=== PATIENT | male | born 1970 | race Caucasian/White ===

== ENCOUNTER 2020-12-24 18:37 | Emergency (ER) | payer BC ==
[2020-12-24 19:02] LABS: BASOPHILS % (AUTO) 0.2 %; EOSINOPHILS % (AUTO) 0.3 %; HGB - HEMOGLOBIN 15.2 g/dL (14.0-18.0); LYMPHOCYTES # (AUTO) 0.8 10^3/uL (1.5-3.5); LYMPHOCYTES % (AUTO) 8.1 %; MEAN CORPUSCULAR VOLUME 84.9 fL (80.0-94.0); MEAN PLATELET VOLUME 9.4 fL (7.4-11.4); MONOCYTES # (AUTO) 0.4 10^3/uL (0.0-1.0); MONOCYTES % (AUTO) 4.2 %; NEUTROPHILS # (AUTO) 8.1 10^3/uL (1.5-6.6); NEUTROPHILS % (AUTO) 86.8 %; PLT - PLATELET COUNT 250 10^3/uL (130-450); RED BLOOD COUNT 5.42 10^6/uL (4.70-6.10); RED CELL DISTRIBUTION WIDTH 13.1 % (12.0-15.0); WHITE BLOOD COUNT 9.4 x10^3/uL (4.8-10.8)
[2020-12-24 19:24] LABS: ALBUMIN 5.2 g/dL (3.2-5.5); BILIRUBIN,TOTAL 4.1 mg/dL (0.2-1.0); CALCIUM 9.8 mg/dL (8.5-10.3); POTASSIUM 3.3 mmol/L (3.5-5.0); TOTAL PROTEIN 7.8 g/dL (6.7-8.2)
[2020-12-24] MEDS ORDERED: ONDANSETRON 4 MG/2 ML VIAL IVP STA (19:51)
[2020-12-24] MEDS ORDERED: HYDROmorphone 1 MG/ML CARPUJECT IVP STA (19:51)
[2020-12-24 19:55] LABS: BILIRUBIN,URINE NEGATIVE (NEGATIVE); GLUCOSE, URINE (UA) NEGATIVE (NEGATIVE); KETONES,URINE (UA) >=80 mg/dL (NEGATIVE); LEUKOCYTE ESTERASE, URINE NEGATIVE (NEGATIVE); NITRITE,URINE NEGATIVE (NEGATIVE); OCCULT BLOOD,URINE NEGATIVE (NEGATIVE); PH,URINE 7.5 PH (5.0-7.5); PROTEIN,URINE NEGATIVE (NEGATIVE); UROBILINOGEN,URINE 0.2 (NORMAL) E.U./dL (NORMAL)
[2020-12-24 19:56] LABS: CLARITY,URINE HAZY (CLEAR)
--- NOTE | 2020-12-24 20:00 | ED Physician Documentation ---
PD HPI ABD PAIN - Stated complaint Stated Complaint: ABD PX - Chief complaint Chief Complaint: Abd Pain - History obtained from History obtained from: Patient - History of Present Illness Timing - duration: Days (1) Timing - details: Waxing and waning Pain level max: 10 Pain level now: 10 Quality: Aching, Sharp, Pain Location: Epigastric Radiation: No: Chest, , Lower back, Left flank, Left shoulder, Right flank, Right shoulder, Upper back Associated symptoms: Nausea. No: Vomiting, Hematemesis, Diarrhea, Constipation, Melena, Hematochezia, Dysuria, Hematuria, Chest pain Recently seen: Not recently seen - Additional information Additional information: Patient is a 50-year-old male who presents to the emergency department with nominal pain. Started this morning at about 2:30 AM and has continued intermittent day. Became constant about 4 hours ago. Nothing seems to make it better or worse. Currently the pain is a 10 out of 10. Described as aching pain, sharp Review of Systems Ten Systems: 10 systems reviewed and negative Constitutional: denies: Fever, Chills Nose: denies: Rhinorrhea / runny nose, Congestion Throat: denies: Sore throat Cardiac: denies: Chest pain / pressure Respiratory: denies: Cough GI: denies: Vomiting, Diarrhea, Hematemesis : denies: Dysuria, Frequency Skin: denies: Rash Musculoskeletal: denies: Neck pain, Back pain Neurologic: denies: Headache PD PAST MEDICAL HISTORY - Past Medical History Past Medical History: No - Past Surgical History Past Surgical History: No - Allergies Allergies/Adverse Reactions: Allergies Allergy/AdvReac Type Severity Reaction Status Date / Time No Known Drug Allergies Allergy Verified 12/24/20 18:44 - Living Situation Living Situation: reports: With family Living Arrangement: reports: At home - Social History Does the pt smoke?: Yes Smoking Status: Former smoker Does the pt drink ETOH?: No PD ED PE NORMAL - Vitals Vital signs reviewed: Yes - General General: Alert and oriented X 3, Other (appears in pain, moaning.) - HEENT HEENT: PERRL, Moist mucous membranes - Neck Neck: Supple, no meningeal sign - Cardiac Cardiac: RRR, Strong equal pulses - Respiratory Respiratory: No respiratory distress, Clear bilaterally - Abdomen Abdomen: Soft, Non distended, Other (TTP RUQ, + baker sign.) - Back Back: No CVA TTP, No spinal TTP - Derm Derm: Warm and dry - Extremities Extremities: No edema - Neuro Neuro: Alert and oriented X 3 - Psych Psych: Normal mood, Normal affect Results - Vitals Vitals: Vital Signs - 24 hr 12/24/20 12/24/20 12/24/20 18:44 20:47 22:00 Temperature 36.5 C Heart Rate 74 78 90 Respiratory 16 20 16 Rate Blood Pressure 160/86 H 147/82 H 137/82 H O2 Saturation 100 98 100 Oxygen O2 Source Nasal cannula - Labs Labs: Laboratory Tests 12/24/20 12/24/20 12/24/20 18:56 18:56 19:48 WBC 9.4 RBC 5.42 Hgb 15.2 Hct 46.0 MCV 84.9 MCH 28.0 MCHC 33.0 RDW 13.1 Plt Count 250 MPV 9.4 Neut # (Auto) 8.1 H Lymph # (Auto) 0.8 L Wells # (Auto) 0.4 Eos # (Auto) 0.0 Baso # (Auto) 0.0 Absolute Nucleated RBC 0.00 Nucleated RBC % 0.0 Sodium 135 Potassium 3.3 L Chloride 97 L Carbon Dioxide 22 Anion Gap 16.0 H BUN 12 Creatinine 1.0 Estimated GFR (MDRD) 79 L Glucose 159 H Calcium 9.8 Total Bilirubin 4.1 H AST 715 H ALT 875 H Alkaline Phosphatase 94 Total Protein 7.8 Albumin 5.2 Globulin 2.6 Albumin/Globulin Ratio 2.0 Lipase 31 Urine Color YELLOW Urine Clarity HAZY Urine pH 7.5 Ur Specific [place] 1.020 Urine Protein NEGATIVE Urine Glucose (UA) NEGATIVE Urine Ketones >=80 H Urine Occult Blood NEGATIVE Urine Nitrite NEGATIVE Urine Bilirubin NEGATIVE Urine Urobilinogen 0.2 (NORMAL) Ur Leukocyte Esterase NEGATIVE Urine RBC None Seen Urine WBC 0-3 Ur Squamous Epith Cells NONE SEEN Amorphous Sediment Marked Urine Bacteria None Seen Ur Microscopic Review INDICATED Urine Culture Comments NOT INDICATED Nasal Adenovirus (PCR) Nasal B. parapertussis DNA (PCR) Nasal Coronavir 229E PCR Nasal Coronavir HKU1 PCR Nasal Coronavir NL63 PCR Nasal Coronavir OC43 PCR Nasal Enterovir/Rhinovir PCR Nasal Influenza B PCR Nasal Influenza A PCR Nasal Parainfluen 1 PCR Nasal Parainfluen 2 PCR Nasal Parainfluen 3 PCR Nasal Parainfluen 4 PCR Nasal RSV (PCR) Nasal B.pertussis DNA PCR Nasal C.pneumoniae (PCR) Sd Human Metapneumo PCR Nasal M.pneumoniae (PCR) Nasal SARS-CoV-2 (PCR) 12/24/20 20:02 WBC RBC Hgb Hct MCV MCH MCHC RDW Plt Count MPV Neut # (Auto) Lymph # (Auto) Wells # (Auto) Eos # (Auto) Baso # (Auto) Absolute Nucleated RBC Nucleated RBC % Sodium Potassium Chloride Carbon Dioxide Anion Gap BUN Creatinine Estimated GFR (MDRD) Glucose Calcium Total Bilirubin AST ALT Alkaline Phosphatase Total Protein Albumin Globulin Albumin/Globulin Ratio Lipase Urine Color Urine Clarity Urine pH Ur Specific [place] Urine Protein Urine Glucose (UA) Urine Ketones Urine Occult Blood Urine Nitrite Urine Bilirubin Urine Urobilinogen Ur Leukocyte Esterase Urine RBC Urine WBC Ur Squamous Epith Cells Amorphous Sediment Urine Bacteria Ur Microscopic Review Urine Culture Comments Nasal Adenovirus (PCR) NOT DETECTED Nasal B. parapertussis DNA (PCR) NOT DETECTED Nasal Coronavir 229E PCR NOT DETECTED Nasal Coronavir HKU1 PCR NOT DETECTED Nasal Coronavir NL63 PCR NOT DETECTED Nasal Coronavir OC43 PCR NOT DETECTED Nasal Enterovir/Rhinovir PCR NOT DETECTED Nasal Influenza B PCR NOT DETECTED Nasal Influenza A PCR NOT DETECTED Nasal Parainfluen 1 PCR NOT DETECTED Nasal Parainfluen 2 PCR NOT DETECTED Nasal Parainfluen 3 PCR NOT DETECTED Nasal Parainfluen 4 PCR NOT DETECTED Nasal RSV (PCR) NOT DETECTED Nasal B.pertussis DNA PCR NOT DETECTED Nasal C.pneumoniae (PCR) NOT DETECTED Sd Human Metapneumo PCR NOT DETECTED Nasal M.pneumoniae (PCR) NOT DETECTED Nasal SARS-CoV-2 (PCR) NOT DETECTED - Rads (name of study) RUQ US Radiology: Final report received, EMP read contemporaneously, See rad report CT abd/pelvis Radiology: Final report received, EMP read contemporaneously, See rad report PD MEDICAL DECISION MAKING - ED course Complexity details: reviewed results, re-evaluated patient, considered differential, d/w patient ED course: 50-year-old male with epigastric and right upper quadrant abdominal pain that started at 2:30 AM, resolved and then recurred later in the afternoon. Found to have elevated bilirubin, AST, ALT, but normal alkaline phosphatase. Mild intra hepatic biliary ductal dilatation, but no obstructing stone demonstrated sonographically. Discussed the case with Dr. Marie, general surgery on-call who states that the bilirubin and LFT elevation are concerning for choledocholithiasis or some other GI process besides cholecystitis. She recommends transfer for ERCP and GI evaluation. CT scan is pending at the time of signout. Patient will be signed out to the oncoming emergency department physician, Dr. Marcelino, see his note for further care. Pain is well controlled. Patient is afebrile. Started on Zosyn. CT Abd/pelvis: RUQ US: IMPRESSION: Cholelithiasis with findings equivocal for cholecystitis. Mild intrahepatic biliary ductal dilatation without obstructing stone demonstrated sonographically. Correlate for signs and symptoms of biliary tract obstruction. Departure - Departure Clinical Impression: Cholecystitis, Elevated LFTs, Hyperbilirubinemia Cholelithiasis Qualifiers: Cholelithiasis location: gallbladder Cholecystitis presence: with cholecystitis Cholecystitis acuity: acute Biliary obstruction: without biliary obstruction Qualified Code(s): K80.00 - Calculus of gallbladder with acute cholecystitis without obstruction Condition: Stable
[2020-12-24 20:06] LABS: AMORPHOUS SEDIMENT,UR Marked /LPF; BACTERIA,URINE None Seen /HPF (None Seen); RBC,URINE None Seen /HPF (0-5); SQUAMOUS EPITHELIAL CELL,UR NONE SEEN (<= Few); WBC,URINE 0-3 /HPF (0-3)
[2020-12-24] MEDS ORDERED: SODIUM CHLORIDE 0.9% 1,000 ML IV STA (20:13)
[2020-12-24] MEDS ORDERED: IOPAMIDOL-300 100 ML VIAL ONE (20:26)
[2020-12-24 21:02] LABS: B. PARAPERTUSSIS- RESP PCR PAN NOT DETECTED; B. PERTUSSIS- RESP PCR PANEL NOT DETECTED; C. PNEUMONIAE- RESP PCR PANEL NOT DETECTED; CORONAVIRUS 229E-RESP PCR NOT DETECTED; CORONAVIRUS HKU1-RESP PCR NOT DETECTED; CORONAVIRUS NL63-RESP PCR NOT DETECTED; CORONAVIRUS OC43-RESP PCR NOT DETECTED; HUMAN METAPNEUMOVIRUS NOT DETECTED; INFLUENZA A- RESP PCR PANEL NOT DETECTED; INFLUENZA B - RESP PCR PANEL NOT DETECTED; M. PNEUMONIAE- RESP PCR PANEL NOT DETECTED; PARAINFLUENZA VIRUS 1 NOT DETECTED; PARAINFLUENZA VIRUS 2 NOT DETECTED; PARAINFLUENZA VIRUS 3 NOT DETECTED; PARAINFLUENZA VIRUS 4 NOT DETECTED; RHINOVIRUS/ENTEROVIRUS NOT DETECTED; RSV- RESP PCR PANEL NOT DETECTED; SARS-CoV-2 -RESP PCR PANEL NOT DETECTED
[2020-12-24] MEDS ORDERED: PIPERACILLIN/TAZOBACTAM 3.375 GM in SODIUM CHLORIDE 0.9% MINIBAG 100 ML IV STA (21:37)
[2020-12-24] MEDS ORDERED: IOPAMIDOL-300 100 ML VIAL IVP ONE (21:54)
--- NOTE | 2020-12-24 21:54 | Ultrasound Report ---
PROCEDURE: Abdomen Limited INDICATIONS: RUQ abd pain, elevated LFT TECHNIQUE: Real-time focused scanning was performed of the abdomen, with image documentation. COMPARISON: None FINDINGS: Mobile shadowing gallstones are present in the gallbladder, largest of the neck measuring 1.1 cm. There is mild gallbladder wall thickening up to 4-5 mm. No pericholecystic fluid. The sonogra pher reports a negative sonographic Mulligan's sign. Increased hepatic parenchymal echogenicity indicat erna of diffuse hepatic steatosis. Mild intrahepatic biliary ductal dilatation. The common duct measur es approximately 6 mm at the corrine hepatis. Pancreas is obscured and not well evaluated. Punctate ech ogenic foci in the right renal hilum may represent vascular calcifications or tiny nonobstructing gumaro culi. No findings of hydronephrosis. IMPRESSION: Cholelithiasis with findings equivocal for cholecystitis. Mild intrahepatic biliary ductal dilatation without obstructing stone demonstrated sonographically. C orrelate for signs and symptoms of biliary tract obstruction. Reviewed by: Wander Moreno MD on 12/24/2020 9:52 PM PDT Approved by: Wander Moreno MD on 12/24/2020 9:52 PM PDT Station ID: [id number]
[2020-12-24] MEDS ORDERED: HYDROmorphone 0.5 MG/0.5 ML SYRINGE IVP STA (22:07)
--- NOTE | 2020-12-25 00:38 | ED Physician Documentation ---
ED Addendum - Addendum Addendum: 12/25/20 09:46 After unsuccessful attempts to place patient at multiple hospitals ([facility] does not have ERCP capability, [facility]'s on-call ERCP not available until morning, [facility] has no beds (I discussed case with LEE Flood, who agrees case would be appropriate for transfer but lack of beds precludes this), patient was able to be transferred to [facility]. I discussed the case with Dr. Suárez at [facility] who accepts transfer.
[2020-12-25] MEDS ORDERED: HYDROmorphone 1 MG/ML CARPUJECT IVP STA (01:16)
[2020-12-25] MEDS ORDERED: SODIUM CHLORIDE 0.9% 1,000 ML IV STA (04:05)
[2020-12-25 09:21] VITALS: BP 133/87
--- NOTE | 2020-12-25 10:40 | CT Report ---
PROCEDURE: Abdomen/Pelvis W INDICATIONS: diffuse abd pain CONTRAST: IV CONTRAST: Isovue 300 ml: 100 PO CONTRAST: *NO PO CONTRAST TECHNIQUE: After the administration of intravenous contrast, 5 mm thick sections acquired from the diaphragms to the symphysis. 5 mm thick coronal and sagittal reformats were acquired. For radiation dose reducti on, the following was used: automated exposure control, adjustment of mA and/or kV according to jf ent size. COMPARISON: None. FINDINGS: Image quality: Excellent. ABDOMEN: Lung bases: Lung bases are clear. Heart size is normal. Solid organs: Liver and spleen are normal in size and enhancement. Gallbladder contains small galls tones. No gallbladder wall thickening or pericholecystic fluid. Biliary system is non dilated. Pancr eas enhances normally. No adrenal nodules. Kidneys demonstrate normal size and enhancement, without hydronephrosis. Peritoneum and bowel: Bowel loops demonstrate normal wall thickness and caliber. No free fluid or a ir. Nodes and vessels: No retroperitoneal or mesenteric adenopathy by size criteria. Aorta and inferior vena cava are normal in size. . Miscellaneous: No ventral hernias. PELVIS: Genitourinary: Bladder wall thickness is normal. Miscellaneous: No inguinal hernias or adenopathy. Bones: No suspicious bony lesions. No vertebral body compression fractures. 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 There is [id number] degenerativ e disc disease in lumbar spine. IMPRESSION: 1. No acute abnormalities in abdomen or pelvis. 2. Cholelithiasis. No CT findings to suggest acute cholecystitis. 3. 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 4. Degenerative disc disease in lumbar spine. No significant discrepancy with the preliminary interpretation. Reviewed by: Ladi Agrawal MD on 12/25/2020 10:38 AM PDT Approved by: Ladi Agrawal MD on 12/25/2020 10:38 AM PDT Station ID: [id number]
== END 2020-12-25 09:50 | disposition short-term general hospital (02) ==
LOC: ED 18:37
DX: K80.40 Calculus of bile duct with cholecystitis, unspecified, without obstruction (principal); K80.10 Calculus of gallbladder with chronic cholecystitis without obstruction; E80.7 Disorder of bilirubin metabolism, unspecified; R94.5 Abnormal results of liver function studies; Z87.891 Personal history of nicotine dependence; Z20.822 Contact with and (suspected) exposure to COVID-19
CPT/HCPCS: 0202U; 36415; 74177; 76705; 80053; 81001; 83690; 85025; 96361; 96365; 96375; 96376; 99284; 99285; J1170; Q9967; 81003; 87086

== ENCOUNTER 2020-12-25 09:42 | Outpatient (CLI) | payer BC | END 2020-12-25 09:43 | disposition short-term general hospital (02) | LOC: EMS 09:42 | PROVIDERS: ATTEND Emergency Medicine | DX: K80.50 Calculus of bile duct without cholangitis or cholecystitis without obstruction (principal); R79.89 Other specified abnormal findings of blood chemistry | CPT/HCPCS: A0425; A0428 ==